=== PATIENT | female | born 1985 | race Caucasian/White ===

== ENCOUNTER 2021-03-28 10:00 | Emergency (ER) | payer MEDICARE, OTHER ==
[2021-03-28 13:23] LABS: HEMOGLOBIN 13.8 gm/dl (12.3-15.3); RED BLOOD COUNT 4.52 M/UL (4.00-5.10); WHITE BLOOD COUNT 9.7 K/UL (4.5-11.0)
[2021-03-28] MEDS ORDERED: FLOMAX 0.4 MG0.4 MG PO (14:45)
[2021-03-28] MEDS ORDERED: TORADOL 10 MG T10 MG PO (14:45)
[2021-03-28] MEDS ORDERED: ZOFRAN ODT 4 MG4 MG SL (14:45)
== END 2021-03-28 15:00 | disposition home or self-care (01) ==
LOC: ER1 10:00
PROVIDERS: Family Medicine
DX: N23 Unspecified renal colic (principal)
CPT/HCPCS: 80053; 81001; 83690; 84703; 85025; 96374; 96375; 99284; J2270; J2405

== ENCOUNTER → 2021-04-29 | Outpatient (CLI) | payer MEDICARE, OTHER ==
[~2021-04-29] MED LIST: FLOMAX 0.4 MG0.4 MG PO; TORADOL 10 MG T10 MG PO; ZOFRAN ODT 4 MG4 MG SL
== END ==
LOC: EMI 04-18 10:15
DX: S83.512A Sprain of anterior cruciate ligament of left knee, initial encounter (principal)
CPT/HCPCS: 73721

== ENCOUNTER 2021-06-20 20:28 | Emergency (ER) | payer MEDICARE, OTHER ==
[2021-06-20 22:02] LABS: HEMOGLOBIN 15.1 gm/dl (12.3-15.3); RED BLOOD COUNT 4.86 M/UL (4.00-5.10); WHITE BLOOD COUNT 11.6 K/UL (4.5-11.0)
[2021-06-20 22:16] LABS: BUN/CREATININE RATIO 15 (0-10)
== END 2021-06-21 00:45 | disposition home or self-care (01) ==
LOC: ER1 20:28
PROVIDERS: Physician Assistant Medical
DX: R42 Dizziness and giddiness (principal); U09.9 Post COVID-19 condition, unspecified; Z90.89 Acquired absence of other organs
CPT/HCPCS: 70496; 80053; 81001; 84484; 85025; 85652; 86140; 93005; 99284; Q9967

== ENCOUNTER 2022-02-23 18:23 | Emergency (ER) | payer MEDICARE, OTHER ==
[2022-02-23 21:40] LABS: HEMOGLOBIN 13.3 gm/dl (12.3-15.3); RED BLOOD COUNT 4.38 M/UL (4.00-5.10); WHITE BLOOD COUNT 12.1 K/UL (4.5-11.0)
[2022-02-23] MEDS ORDERED: HYDROCODON-ACE1 EAC2 PO (22:51)
[2022-02-23] MEDS ORDERED: ZOFRAN ODT 4 MG4 MG GT (22:51)
== END 2022-02-23 23:08 | disposition home or self-care (01) ==
LOC: ER1 18:23
PROVIDERS: Family Medicine
DX: N20.2 Calculus of kidney with calculus of ureter (principal); I10 Essential (primary) hypertension; Z90.89 Acquired absence of other organs
CPT/HCPCS: 80053; 81001; 83690; 85025; 96374; 96375; 99284; J2270; J2405